=== PATIENT | male | born 1965 | race Two or more races ===

== ENCOUNTER 2018-12-25 23:22 | Emergency (ER) | payer MEDICAID ==
[~2018-12-25] VITALS: Ht 175.3 cm; Wt 106.6 kg
[2018-12-26] MEDS ORDERED: AZITHROMYCIN 250 MG TABLET PO ONE (01:00)
[2018-12-26] MEDS ORDERED: predniSONE 20 MG TABLET PO ONE (01:00)
[2018-12-26] MEDS ORDERED: ALBUTEROL SULFATE 2.5 MG/3 ML NEBU NEB ONE (01:00)
[2018-12-26] MEDS ORDERED: IPRATROPIUM BROMIDE 0.5 MG/2.5 ML NEBU NEB ONE (01:00)
[2018-12-26] MEDS ORDERED: ALBUTEROL SULFATE 2.5 MG/ 0.5 ML NEBU ONE (01:06)
[2018-12-26] MEDS ORDERED: IPRATROPIUM BROMIDE 0.5 MG/2.5 ML NEBU ONE (01:06)
[2018-12-26] MEDS ORDERED: AZITHROMYCIN 250 MG TABLET ONE (01:07)
[2018-12-26] MEDS ORDERED: predniSONE 10 MG TABLET ONE (01:07)
[2018-12-26] MEDS ORDERED: predniSONE 50 MG TABLET ONE (01:07)
--- NOTE | 2018-12-26 01:20 | NUR ---
PROVIDED PATIENT WITH MEAL
--- NOTE | 2018-12-26 01:26 | NUR ---
Patient given written and verbal discharge instructions. Patient verbalizes understanding of instructions. Patient is ambulatory with steady gait. Refuses offer of jail placement. Patient given list of available shelters in surrounding area. WALKED OUT OF ER WITH STEADY GAIT
[2018-12-26 01:32] VITALS: BP 166/88
== END 2018-12-26 01:34 | disposition home or self-care (01) ==
LOC: ER 23:25
DX: R05 Cough (principal); F15.10 Other stimulant abuse, uncomplicated; Z90.89 Acquired absence of other organs
CPT/HCPCS: 71045; 94640; 99283; J7512 ×2; A4663; J3590; Q0144